=== PATIENT | female | born 1940 | race Caucasian/White ===

== ENCOUNTER 2023-06-13 10:13 | Outpatient (AMB) | payer OTHER, SELFPAY ==
--- NOTE | 2023-06-13 10:14 | A.OFFVIS_ITS ---
Intake Vital Signs 06/13/23 10:15 Height 5 ft 2 in Weight 126 lb BMI 23.0 BP 128/74 Blood Pressure Location Rt brachial Position Sitting Pulse 93 Pulse Source Pulse Oximeter Pulse Oximetry (%) 99 Oxygen Delivery Method Room Air Intake Visit Reasons: 02/24/23LVM+Letter ENP-Gait disturbance-Conf Intake Note: Patient presents for gait disturbance. Allergies No Known Allergies Allergy (Verified 06/13/23 10:18) Medication List - Last Reconciled 06/13/23 by SANTI Pierson flash glucose sensor (FreeStyle Sonia 2 Sensor kit) As directed insulin glargine (Lantus Solostar U-100 Insulin) units subcut lisinopril 40 mg PO DAILY meclizine 12.5 mg PO TID metoprolol succinate ER 50 mg PO DAILY nifedipine ER 30 mg PO DAILY omeprazole 20 mg PO DAILY simvastatin 40 mg PO BEDTIME HPI HPI Comments History of Present Illness Details 82-yr-old female presents for neurologic al evaluation of: dizziness. Pt reports 10 yrs ago she tripped over a crack. Since, she has had balance difficulties. She states the balance difficulties cause her to bump into things.? She states she is always off-balance. Uses a cart in the store to prevent her from bumping into someone.?Does not use a cane or walker- feels this would be worse. The left side of her head feels more dizzy- especially if rolling over in bed or laying on the left side. She endorses room spinning dizziness if she gets up too quickly. She can be prone to falls- last fall was in the summer. She tends to fall forward.? She has done vestibular therapy, which can help. Uses meclizine at times.? She reports new head symptoms in the last year.? States ?everything? is on the left side of the head. She can feel as if something is crawling inside her head. Feeling like her hair is standing up on edge. Can feel like a burning sensation. Sometimes the left side of the head can feel swollen. When her left head is more bothersome, her balance is worse. When this occurs, she just wants to sleep- will sleep x?s 30 minutes and the discomfort resolves.?Also a/w left eye- triple vision x?s 5 minutes.? Denies associated photophobia, phonophobia, N/V.? The head discomfort occurs at least once a week. She has never tried analgesics for this. Denies h/o migraine, ear pain, tinnitus, pulsatile tinnitus, hearing loss. Does not believe that she has had head imaging. [facility] Social History (Updated 06/13/23 @ 10:20 by BRANDYN Mahmood) Alcohol intake: never Patient Tobacco Use Status: Never used Tobacco Review of Systems Const All systems reviewed & are unremarkable except as noted in HPI and below Physical Exam Vital Signs: Last Vital Signs Pulse 93 06/13/23 10:15 BP 128/74 06/13/23 10:15 Pulse Ox 99 06/13/23 10:15 Oxygen Delivery Method Room Air 06/13/23 10:15 BMI result Body Mass Index 23.0 Const General: cooperative and no acute distress Orientation/consciousness: patient oriented x3 HEENT Head: Yes normocephalic Resp Effort & Inspection: normal respiratory effort and able to speak in complete sentences Neuro Other: No palpable scalp tenderness Finger-nose- mild dysmetria on left Romberg- mild swaying Gait- decreased arm swing, unsteady gait at times. General: patient oriented x3, CN's II-XI intact bilaterally and deep tendon reflexes 2+ bilaterally Motor exam (neuro): 5/5 motor strength present throughout Psych Appearance: grossly normal Mental Status: mental status grossly normal Speech and movement: Normal speech and movement present Affect: normal affect Attitude: cooperative Thought process: Normal thought process present Thought content: Normal thought content present Insight: Good insight present (Psych) Assessment & Plan Assessment & Plan (1) Vertigo: Code(s): R42 - Dizziness and giddiness (2) New onset headache: Comment: Left sided head discomfort a/w left eye visual changes, worsening dizziness, allodynia Code(s): R51.9 - Headache, unspecified (3) Diplopia: Code(s): H53.2 - Diplopia Plan Although, pt feels that her balance issues are not vertigo and her right-sided head symptoms are not headache, this may be an atypical migraine or vestibular migraine. Thus, as pt is 82 yo w/ h/o diabetes and HTn w/ atypical headache and dizziness s/s, pt advised to undergo brain and maddie AIC MRI w/wo- to assess for secondary central etiologies. Consider retrying vestibular tx upon review. f/u upon review and in clinic in 3 months or sooner prn. Orders: Orders MR head/brain wo/w con Today H53.2 - Diplopia, R42 - Dizziness and giddiness, R51.9 - Headache, unspecified Coding Level of Care Code New Pt Level 4 (46252) Diagnoses Vertigo R42 New onset headache R51.9 Diplopia H53.2
[2023-06-13 10:15] VITALS: BP 128/74; PULSE 93; O2SAT 99; BMI 23.0
== END 2023-06-13 10:57 | disposition home or self-care (01) ==
PROVIDERS: PCP Internal Medicine; Visit Provider Nurse Practitioner Family
DX: R42 Dizziness and giddiness (principal); R51.9 Headache, unspecified; H53.2 Diplopia
CPT/HCPCS: 99204

== ENCOUNTER → 2023-06-13 10:13 | Outpatient (BNVA) | payer OTHER, SELFPAY | PROVIDERS: PCP Internal Medicine; Visit Provider Nurse Practitioner Family ==

== ENCOUNTER 2023-08-03 11:26 | Outpatient (REF) | payer OTHER, SELFPAY ==
--- NOTE | ~2023-08-03 | MR_ITS ---
EXAMINATION: MR BRAIN WITHOUT AND WITH CONTRAST CLINICAL INFORMATION: Dizziness. Vertigo. COMPARISON: No relevant prior imaging. TECHNIQUE: Multiplanar MR imaging of the brain was performed without and with contrast. Total of 5.5 mL Gadavist was utilized for this examination. FINDINGS: Dedicated high-resolution imaging through the posterior fossa reveals no cerebellopontine angle cistern mass. There is no abnormal enhancement along the cisternal segments of the 7th or 8th cranial nerves. Labyrinthine structures are morphologically normal. There is no mastoid or middle ear effusion. No abnormal petrous temporal bone enhancement. Postcontrast images of the whole brain reveal no abnormal mass or enhancement elsewhere within the intracranial compartment. No intracranial mass effect or midline shift. Lateral and third ventricles are normal. No hydrocephalus. There is multilevel degenerative spondylosis of the cervical spine with at least moderate canal stenosis at the level of C3-C4. Midline structures are otherwise unremarkable. No acute bone marrow signal changes. There are scattered nonspecific foci of T2 FLAIR signal hyperintensity within the periventricular white matter. No acute territorial infarct. There is a punctate focus of susceptibility artifact located within the right parietal lobe that most likely represents a chronic microhemorrhage. Intracranial vascular flow voids are grossly maintained. There is no active paranasal sinus disease. Globes and orbits are grossly symmetric. MR/MR head/brain wo/w con IMPRESSION: There are scattered chronic small vessel ischemic changes within the periventricular white matter. Otherwise unremarkable examination in that there is no discrete anatomic finding to provide an explanation for this patient's dizziness and vertigo. There is a chronic microhemorrhage involving the right parietal lobe. No acute territorial infarct. No abnormal intracranial mass or enhancement. Of note there is multilevel degenerative spondylosis of the cervical spine with at least moderate canal stenosis at the level of C3-C4. If there are clinical symptoms of compressive myelopathy then a dedicated cervical spine MRI can be obtained for better anatomic characterization of the cord and canal.
[2023-08-03] MEDS: gadobutroL 7.5 ML VIAL IVPUSH (12:16)
== END 2023-08-03 11:27 | disposition home or self-care (01) ==
LOC: HO.MRI 11:26
PROVIDERS: PCP Internal Medicine; Visit Provider Nurse Practitioner Family
DX: H53.2 Diplopia (principal); R51.9 Headache, unspecified; R42 Dizziness and giddiness
CPT/HCPCS: 70553; A9585

== ENCOUNTER 2023-09-12 13:27 | Outpatient (AMB) | payer OTHER, SELFPAY ==
--- NOTE | 2023-09-12 13:31 | A.OFFVIS_ITS ---
Intake Vital Signs 09/12/23 13:35 Height 5 ft 2 in Weight 129 lb BMI 23.6 Pulse 77 Pulse Source Pulse Oximeter Pulse Oximetry (%) 99 Oxygen Delivery Method Room Air Intake Visit Reasons: 3 mo f/u - Gait disturbance-Conf Intake Note: Patient presents for 3 month follow up. my gait is the same I'm off balance all the time Allergies No Known Allergies Allergy (Verified 09/12/23 13:37) HPI HPI Comments History of Present Illness Details 82-yr-old female presents for f/u visit. Pt denies any significant interval medical changes. She states she is always off-balance, but not as bad as before. She is prone to moving quicker than she thinks she should. She continues to have balance difficulties cause her to bump into things.? Uses a cart in the store to prevent her from bumping into something or falling. She is still prone to falls. The left side of her head dizziness has resolved. She did not do vestibular PT after the last visit- but has done vestibular therapy before, which helped in the past. Uses meclizine at times.? Denies neck pain. No shooting neck pains. No uE numbness, tingling, B&B changes. Can have either right or left shoulder pain- hurts . MR/MR head/brain wo/w con IMPRESSION: There are scattered chronic small vessel ischemic changes within the periventricular white matter. Otherwise unremarkable examination in that there is no discrete anatomic finding to provide an explanation for this patient's dizziness and vertigo. There is a chronic microhemorrhage involving the right parietal lobe. No acute territorial infarct. No abnormal intracranial mass or enhancement. Of note there is multilevel degenerative spondylosis of the cervical spine with at least moderate canal stenosis at the level of C3-C4. If there are clinical symptoms of compressive myelopathy then a dedicated cervical spine MRI can be obtained for better anatomic characterization of the cord and canal. [facility] Social History Alcohol intake: never Patient Tobacco Use Status: Never used Tobacco Physical Exam Vital Signs: Last Vital Signs Pulse 77 09/12/23 13:35 Pulse Ox 99 09/12/23 13:35 Oxygen Delivery Method Room Air 09/12/23 13:35 BMI result Body Mass Index 23.6 Const General: cooperative and no acute distress Orientation/consciousness: patient oriented x3 Resp Effort & Inspection: normal respiratory effort and able to speak in complete sentences Neuro General: patient oriented x3, moves all extremities and deep tendon reflexes 2+ bilaterally Cranial nerves: Yes CN's II-XII intact bilaterally Cognition (Neuro): normal cognition Gait exam (Neuro): Normal gait present Motor exam (neuro): 5/5 motor strength present throughout Coordination: [id number] test normal Psych Appearance: grossly normal Mental Status: mental status grossly normal Speech and movement: Normal speech and movement present Affect: normal affect Attitude: cooperative Assessment & Plan Assessment & Plan (1) Difficulty balancing: Code(s): R29.818 - Other symptoms and signs involving the nervous system (2) Cervical stenosis of spinal canal: Code(s): M48.02 - Spinal stenosis, cervical region (3) Falls: Code(s): W19.XXXA - Unspecified fall, initial encounter Plan Reviewed brain MRI report w/ pt and images: Scattered chronic small vessel ischemic changes within the periventricular white matter, chronic microhemorrhage involving the right parietal lobe.No finding to account for pt's dizziness s/s. Multilevel degenerative spondylosis of the cervical spine with at least moderate canal stenosis at the level of C3-C4. For chronic periventricular white matter small vessel ischemic and right parietal chronic microhemorrhage- B/P is normotensive. Continue to optimize CV risk factors. For headache/left sided dizziness- resolved- will monitor.. For brain MRI findings of moderate cervical canal stenosis, falls and gait difficulties- pt denies any myopathy s/s. Did discuss ordering c-spine MRI to better assess cervical stenosis, as this can contribute to gait difficulties, however pt declined. Offered PT as pt continue to be - pt declined at this time, she states she will do exercises on her own at home. f/u in 6 months or sooner prn. Coding Level of Care Code Est Pt Level 4 ([id number]) Diagnoses Difficulty balancing R29.818 Cervical stenosis of spinal canal M48.02 Falls W19.XXXA
[2023-09-12 13:35] VITALS: PULSE 77; O2SAT 99; BMI 23.6
== END 2023-09-12 14:28 | disposition home or self-care (01) ==
PROVIDERS: PCP Internal Medicine; Visit Provider Nurse Practitioner Family
DX: R29.818 Other symptoms and signs involving the nervous system (principal); M48.02 Spinal stenosis, cervical region; R29.6 Repeated falls
CPT/HCPCS: 99214

== ENCOUNTER → 2023-09-12 13:27 | Outpatient (BNVA) | payer OTHER, SELFPAY | PROVIDERS: PCP Internal Medicine; Visit Provider Nurse Practitioner Family ==